=== PATIENT | female | born 1990 | race Caucasian/White ===

== ENCOUNTER 2025-08-08 08:33 | Outpatient (AMB) | payer OTHER, SELFPAY ==
--- NOTE | 2025-08-08 08:35 | A.OFFVIS_ITS ---
Intake Visit Reasons: 3 Months F/U Allergies clindamycin Allergy (Unknown, Verified 08/08/25 08:40) Unknown Medication List - Last Reconciled 08/08/25 by Lizy Jimenez CNP albuterol sulfate 90 mcg/actuation (Ventolin HFA) 2 puffs inhalation Q4H PRN amitriptyline 150 mg PO BEDTIME 90 days montelukast 10 mg PO BEDTIME omeprazole 20 mg PO DAILY rizatriptan take 1 tab at onset of headache; if no relief may repeat 1 tab after at least 2 hrs; max = 3 tabs/24 hr PO tizanidine 2 mg PO BEDTIME PRN 30 days tramadol 50 mg PO BEDTIME PRN 90 days HPI Comments Details: 35-year-old woman with anxiety, depression, insomnia, migraine since childhood, and fibromyalgia. She was doing so-so. Fibromyalgia pains were about the same, worse in neck and shoulders with tightness. She was using tizanidine as needed when pain was more severe. She weaned herself off pregabalin and Effexor a few months ago. No change in pain without medication. Few mild headaches triggered by lack of sleep. No significant migraines. Sleep was up and down. She had a friend who passed earlier this summer. Review of Systems Const Denies chills, Denies daytime sleepiness, Reports difficulty sleeping, Denies fatigue, Denies fever(s), Denies frequent falls, Reports headache(s), Denies increased appetite, Denies poor appetite, Denies snoring, Denies weakness, Denies weight gain and Denies weight loss Eyes Denies loss of vision ENT Denies vertigo, Denies dizziness and Reports headache(s) Card Denies chest pain at rest, Denies chest pain with activity, Denies syncope, Denies leg edema and Denies palpitations Resp Denies snoring GI Denies constipation, Denies heartburn, Denies diarrhea and Denies nausea Denies urinary frequency, Denies urinary incontinence and Denies urinary urgency Musc Denies abnormal gait, Denies numbness and Denies tingling Skin/Breast Denies dry skin and Denies rash Neuro Denies abnormal gait, Denies vertigo, Denies dizziness, Denies syncope, Denies frequent falls, Reports headache(s), Denies lack of coordination, Denies loss of vision, Denies memory loss, Denies numbness, Denies restless legs, Denies seizure-like activity, Denies tingling, Denies paresthesias, Denies tremor(s) and Denies weakness Psych Reports anxiety, Reports depression, Denies auditory hallucinations, Denies memory loss, Denies visual hallucinations and Denies suicidal ideation Endo Denies fatigue and Denies palpitations Physical Exam Const Other: General Appearance:? normal, in no acute distress. Skin:? no rashes, no significant birthmarks. Heart:? S1, S2 normal, no murmurs. Lungs:? clear anteriorly and posteriorly. Extremities:? no edema. Psych:? alert, oriented, cognitive function intact, cooperative with exam. Neuro Other: Mental Status:?Normal attention, orientation, memory and affect.? Cranial Nerves:?Pupils are equal, round and reactive to light. External occular muscles are intact. Visual simon are full. Face is symmetrical. Facial sensations are normal. Tongue is midline. Palate elevates symmetrically. Shoulder shrugging is normal. Hearing to bedside conversation is normal. Sensory Exam:?....? Coordination:?No ataxia,?no titubation.? Gait Exam: Within normal limits. Cerebellar Signs:?[id number] is okay. Extrapyramidal System:?No tremor, rigidity with normal facial expressions.? Pronator Drift:?Not present.? Involuntary Movements:?No tremors seen.? Speech:?Normal.? Results Reviewed Results Reviewed: NCV/EMG UE 12/06/19 This is a normal study.. MRI C spine [facility] at [facility] in Jan 2019: WNL. Assessment & Plan Assessment & Plan (1) Fibromyalgia: Code(s): M79.7 - Fibromyalgia Category: Medical Plan: Continue tramadol 50mg 1 tablet at bedtime. Continue tizanidine 2mg 1 tablet at bedtime as needed for muscle spasm/pain. She tapered herself off pregabalin and venlafaxine, and has been without either medication for few months. She has not noticed any significant change in pain without medications and medications were discontinued. PT referral placed. (2) Migraine without aura: Code(s): G43.009 - Migraine without aura, not intractable, without status migrainosus Category: Medical Qualifiers: Status migrainosus presence: without status migrainosus Intractability: not intractable Qualified Code(s): G43.009 - Migraine without aura, not intractable, without status migrainosus Plan: Continue amitriptyline 150mg 1 tablet at bedtime. Continue rizatriptan 10mg 1 tablet as needed for migraine. (3) Insomnia: Code(s): G47.00 - Insomnia, unspecified Category: Medical Qualifiers: Insomnia type: unspecified Qualified Code(s): G47.00 - Insomnia, unspecified Plan Meds tried: Gabapentin, Nortryptiline, Cymbalta, Baclofen, Venlafaxine, Methocarbamol, cyclobenzperine, pregabalin Meds tried for headaches: Venlafaxine, amitriptyline Orders: Orders PT Evaluation and Treatment Today M79.7 - Fibromyalgia Coding Level of Care Code Est Pt Level 4 (15468) Diagnoses Fibromyalgia M79.7 Migraine without aura and without status migrainosus, not intractable G43.009 Status migrainosus presence: without status migrainosus Intractability: not intractable Insomnia, unspecified type G47.00 Insomnia type: unspecified
--- OUTSIDE RECORDS SUMMARY | 2025-08-08 09:33 | XMS_ITS ---
Author Name [facility] Organization Unknown Care Team Organization Name Specialty Phone Email Start Date End Da te [facility] J Carlos Lerma Primary Care 02/05/202307/01 [facility] Gabrielle Patel DO Primary Care 12/09/202207/01 [facility] NULL Primary Care 10/08/2022 07/19/2024
--- OUTSIDE RECORDS SUMMARY | 2025-08-08 09:33 | XMS_ITS | Clinical Summary ---
Author Organization [address] Address [address] [place] [address] Phone Care Team Providers Care Chief Scientist Name Role Phone J Carlos Lerma MD Primary Care Provider Allergies Active Allergy Reactions Criticality Noted Date Comments Clindamycin Hcl Hives 01/11/2013 Medications fluticasone HFA (FLOVENT HFA) 110 mcg/actuation inhaler Inhale 1 Puff into the lungs 2 times daily. 05/26/20 24 Active mometasone HFA (Asmanex HFA) 100 mcg/actuation HFA aerosol inhaler inhaler 04/01/20 24 Active traMADoL (ULTRAM) 50 mg tablet Take 1 tablet (50 mg total) by mouth 1 (one) time each day. Active TURMERIC ORAL Take by mouth daily. Active green tea leaf extract 150 mg capsule Take by mouth daily. Active glycopyrrolate (ROBINUL) 1 mg tablet TAKE 1 TABLET BY MOUTH THREE TIMES A DAY 07/09/20 21 Active amitriptyline (ELAVIL) 100 mg tablet Take 1 tablet by mouth at bedtime. 03/16/20 21 Active norethindrone- ethinyl estradiol (Alyacen , 28,) 1-35 mg-mcg per tablet TAKE 1 TABLET BY MOUTH EVERY DAY WITHOUT PLACEBO 10/08/20 19 Active cranberry 500 mg capsule Take by mouth. Active ASCORBIC ACID, VITAMIN C, ORAL Take by mouth daily. Active cetirizine HCl (CETIRIZINE ORAL) Take by mouth daily as needed. Active cholecalcifero l (VITAMIN D-3) 50 mcg (2,000 unit) tablet Take 1 tablet (2,000 Units total) by mouth 1 (one) time each day. 90 tablet 1 10/06/20 24 Active omeprazole (PriLOSEC) [address] capsule TAKE 1 CAPSULE BY MOUTH EVERY DAY 90 capsule 1 07/12/20 25 Active doxycycline hyclate (VIBRA-TABS) 100 mg tablet Take 1 tablet twice a day by oral route for 21 days. 07/20/20 25 Active predniSONE (DELTASONE) 10 mg tablet Take 4 tabs PO for 3 days then 2 tabs PO for 3 days then 1 tab PO for 3 days then stop 07/20/20 25 Active montelukast (SINGULAIR) 10 mg tablet Take 1 tablet (10 mg total) by mouth at bedtime. 90 each 07/26/20 25 Active albuterol HFA (PROAIR HFA ; PROVENTIL HFA ; VENTOLIN HFA) 90 mcg/actuation inhaler Inhale 2 puffs by mouth every 4 (four) hours if needed for wheezing. 6.7 g 2 07/26/20 25 Active albuterol HFA (PROAIR HFA ; PROVENTIL HFA ; VENTOLIN HFA) 90 mcg/actuation inhaler Inhale 2 Puffs into the lungs every 4 hours as needed for Cough or Wheezing. 03/29/20 24 025 Discontinued(Re order) loratadine (CLARITIN) 10 mg tablet Take 1 tablet (10 mg total) by mouth 1 (one) time each day. 025 Discontinued( erapy completed) pregabalin (LYRICA CR ORAL) Take by mouth. 11/25/20 20 025 Discontinued(Th erapy completed) venlafaxine HCl (EFFEXOR XR ORAL) Take by mouth. 11/25/20 20 025 Discontinued( erapy completed) omeprazole (PriLOSEC) [address] capsule TAKE 1 CAPSULE BY MOUTH EVERY DAY 90 capsule 1 02/01/20 25 025 Discontinued Active Problems Problem Noted Date Diagnosed Date Gastroesophageal reflux disease without esophagi tis 10/28/2023 Hyperhidrosis 04/21/2023 Obesity (BMI 30.0-34.9) 08/26/2021 Fibromyalgia 09/26/2020 Overview (08/31/2024): Prescribed lyrica by neurology Migraine without status migrainosus, not intract able 12/27/2019 Overview (08/31/2024): Follows with neurology on venlafaxine twice per day Cervical spondylosis without myelopathy 07/15/20 19 Overview (08/31/2024): [facility] Gastroesophageal reflux disease with esophagitis 07/30/2017 Herpes labialis 12/23/2014 Mild dysplasia of cervix 06/12/2011 Anxiety and depression 03/27/2011 Overview (08/31/2024): Panic attacks Encounters Date Type Department Care Team Description 07/26/2025 9:22 AM EDT - 07/26/2025 11:59 PM EDT Hospital Encounter [address] [phone] Acute cough Discharge Disposition: Home or Self Care 07/26/2025 9:00 AM EDT Office Visit Adult Medicine [address] [phone] Iesha Palma PA Chronic maxillary sinusitis (Primary Dx); Acute cough; Nasal polyp; Elevated blood pressure reading 07/25/2025 Telephone Adult [address] [phone] J Carlos Lerma MD from Last 3 Months Immunizations Name Administration Dates Next Due Pfizer SARS-CoV-2 COVID-19, mRNA, LNP-S, preservative free 02/02/2021,01/12/2021 Tdap Tetanus diptheria acell ular pertussis (Boostrix; Adacel) 7yo and older 01/10/2011 Surgical History Surgery Date Site/Laterality Comments OTHER SURGICAL HISTORY PROCEDURE: DENIES PREVIOUS SURGERY Medical History Medical History Date Comments Migraine headache DX:Migraine he adache Fibromyalgia DX:Fibromyalgia Hyperhidrosis DX:Hyperhidrosis Family History Medical History Relation Name Comments Pancreatic cancer Maternal Grandmother Diabetes Mother Coronary artery disease Neg Hx Relation Name Status Comments Maternal Grandmother Mother Son Alive 5months 05/2011, healthy Social History Tobacco Use Types Packs/Day Years Used Date Smoking Tobacco: Never Smokeless Tobacco: Never Tobacco Cessation:Counseling Given: Not Answered Alcohol Use Standard Drinks/Week Comments Yes 0 (1 standard drink = 0.6 oz pur e alcohol) Comments No Sex and Gender Information Value Date Recorded Sex Assigned at Not on file Legal Sex Female 2:59 AM EST Gender Identity Not on file Sexual Orientation Not on file Obstetrics History Last Filed Vital Signs Vital Sign Reading Time Taken Comments Blood Pressure 124/88 07/26/2025 9:15 AM EDT Pulse 102 07/26/2025 8:54 AM EDT Temperature 36.5 C (97.7 F) 07/26/2025 8:54 AM EDT Respiratory Rate 14 07/26/2025 8:54 AM EDT Oxygen Saturation 98% 07/26/2025 8:54 AM EDT Inhaled Oxygen Concentration - - Weight 73.4 kg (161 lb 12.8 oz) 07/26/2025 8:54 AM EDT Height 154.9 cm (5' 1 ) 07/26/2025 8:54 AM EDT Body Mass Index 30.57 07/26/2025 8:54 AM EDT Plan of Treatment Upcoming Encounters Date Type Department Care Team (Late st Contact Info) Description 11/08/2025 4:00 PM EST Office Visit Adult Medicine [address] [phone] J Carlos Lerma MD [address] [place] [address] Health Maintenance Due Date Last Done Comments Hepatitis B Vaccines (1 of 3 - 19+ 3-dose series) 2007 Pneumococcal Vaccine: Pediatrics (0 to 5 Years) and At-Risk Patients (6 to 49 Years) (1 of 2 - PCV) 2007 DTaP,Tdap,and Td Vaccines (2 - Td or Tdap) 01/10/2021 01/10/2011 Social Influencers of Health Screening 11/09/2022 Depression Screening 12/01/2024 COVID-19 Vaccine (3 - 2024-2 6 season) 2025 02/02/2021, 01/12/2021 Influenza Vaccine (#1) 2025 Cervical Cancer Screening: HPV 09/17/2026 09/17/2021 Cholesterol Screening (Lipid Panel) 04/22/2028 04/22/2023 HIB Vaccines Aged Out No longer eligi ble based on patient's age to complete this topic HIV Screening Discontinued HPV Vaccines Aged Out No longer eligi ble based on patient's age to complete this topic Hepatitis A Vaccines Aged Out No long er eligible based on patient's age to complete this topic Hepatitis C Screening Discontinued IPV Vaccines Aged Out No longer eligi ble based on patient's age to complete this topic MMR Vaccines Aged Out No longer eligi ble based on patient's age to complete this topic Meningococcal ACWY Vaccine Aged Out N o longer eligible based on patient's age to complete this topic Meningococcal B Vaccine Aged Out No l onger eligible based on patient's age to complete this topic RSV Immunization Patients Under 20 months Aged Out No longer eligible based on patient's age to complete this topic Varicella Vaccines Aged Out No longer eligible based on patient's age to complete this topic Procedures Procedure Name Priority Date/Time Associated Diagnosis Comments XR CHEST 2 VIEWS Routine 07/26/2025 9:28 AM EDT Acute cough LIPID PANEL Routine 04/22/2023 HM HPV Routine 09/17/2021 from Last 3 Months or Most Recently Relevant to Health Maintenance Results * XR Chest 2 Views (07/26/2025 9:28 AM EDT) Anatomical Region Laterality Modality Body Radiographic Sel[place] ging 07/26/2025 10:3 0 AM EDT Narrative 07/26/2025 10:31 AM EDT Chest, 2 views. History productive cough for one week. Comparison with prior study from 12/25/2023. There is no pneumothorax, pleural effusions or focal consolidations. Cardiomediastinal silhouette is unremarkable. CONCLUSIONS: Unremarkable chest radiographs. -------- FINAL REPORT -------- Dictated By: Crissy Vides Dictated Date: 07/26/2025 10:30 ET Assigned Physician: Crissy Vides Reviewed and Electronically Signed By: Crissy Vides Signed Date: 07/26/2025 10:31 ET Workstation ID: [id number] Transcribed By: Self Edit Transcribed Date: 07/26/2025 10:30 ET Procedure Note Crisys Vides MD - 07/26/2025 Chest, 2 views. History productive cough for one week. Comparison with prior study from 12/25/2023. There is no pneumothorax, pleural effusions or focal consolidations.Cardiomediastinal silhouette is unremarkable. CONCLUSIONS: Unremarkable chest radiographs. -------- FINAL REPORT -------- Dictated By: Crissy Vides Dictated Date: 07/26/2025 10:30 ET Assigned Physician: Crissy Vides Reviewed and Electronically Signed By: Crissy Vides Signed Date: 07/26/2025 10:31 ET Workstation ID: [id number] Transcribed By: Self Edit Transcribed Date: 07/26/2025 10:30 ET Iesha ORR IMG XR PROCEDURES Final Result * (ABNORMAL) Lipid panel (04/22/2023) [facility] LDL/HDL Ratio 5(A) 0 - 4 Triglycerides 168(A) 0 - 150 mg/dL Cholesterol 192 0 - 200 mg/dL HDL 43 >=40 mg/dL LDL Cholesterol 116(A) 0 - 100 mg/dL Blood Venous blood specimen / Unknown Result [facility] Historical Provider LAB BLOOD ORDERABLES Diana l Result * Cervical Cancer Screening: HPV (09/17/2021) [facility] Cervical Cancer Screening: HPV abstracted, negative Historical Provider HEALTH MAINTENANCE Final Result from Last 3 Months or Most Recently Relevant to Health Maintenance Insurance [place] [address] [employer] PLAN Care Teams Chief Scientist Relationship Specialty Start Date End Date J Carlos Lerma MD [address] [place] [address] PCP - General Internal Medicine 02/11/22
== END 2025-08-08 08:52 | disposition home or self-care (01) ==
LOC: HO.HSM 08:34
PROVIDERS: PCP Internal Medicine; Referring Provider Pediatrics; Visit Provider Registered Nurse
DX: M79.7 Fibromyalgia (principal); G43.009 Migraine without aura, not intractable, without status migrainosus; G47.00 Insomnia, unspecified
CPT/HCPCS: 99214

== ENCOUNTER → 2025-08-08 08:33 | Outpatient (BNVA) | payer OTHER, SELFPAY | PROVIDERS: PCP Internal Medicine; Referring Provider Pediatrics; Visit Provider Registered Nurse | DX: M79.7 Fibromyalgia (principal); G43.009 Migraine without aura, not intractable, without status migrainosus; G47.00 Insomnia, unspecified; Z79.899 Other long term (current) drug therapy; Z79.891 Long term (current) use of opiate analgesic | CPT/HCPCS: 99212 ==